=== PATIENT | male | born 2000 | race Two or more races ===

== ENCOUNTER 2022-07-15 09:03 | Emergency (ER) | payer BC ==
[~2022-07-15] VITALS: Ht 175.3 cm; Wt 77.6 kg
--- NOTE | 2022-07-15 09:15 | NUR ---
LOWER BACK PAIN S/P LIFTING SOMETHING HEAVY AT WORK YESTERDAY TAKING TYLENOL W/ NO RELIEF. RATES PAIN 10/10. IN ROOM AIR AND DENIES SOB. RESPIRATION REGULAR AND UNLABORED. WILL CONTINUE TO MONITOR THE PATIENT.
[2022-07-15] MEDS ORDERED: KETOROLAC TROMETHAMINE INJ 60 MG/2 ML VIAL IM ONE (09:30)
[2022-07-15] MEDS ORDERED: KETOROLAC TROMETHAMINE INJ 30 MG/ML VIAL ONE (09:30)
[2022-07-15] MEDS ORDERED: CYCL10TA9 PO (09:45)
[2022-07-15] MEDS ORDERED: IBUP-1955 PO (09:45)
[2022-07-15 09:57] VITALS: BP 125/61
--- NOTE | 2022-07-15 09:57 | NUR ---
Patient discharged to home in stable condition. Written and verbal after care instructions given. Patient verbalizes understanding of instruction.
== END 2022-07-15 09:57 | disposition home or self-care (01) ==
LOC: ER 09:21
DX: S39.012A Strain of muscle, fascia and tendon of lower back, initial encounter (principal); X58.XXXA Exposure to other specified factors, initial encounter; Y93.89 Activity, other specified; Y92.89 Other specified places as the place of occurrence of the external cause; Y99.8 Other external cause status
CPT/HCPCS: 99283; 96372; J1885